=== PATIENT | female | born 1960 | race Caucasian/White ===

== ENCOUNTER 2017-01-03 00:05 | Emergency (ER) | payer SELFPAY | END 2017-01-03 03:09 | disposition home or self-care (01) | LOC: D.ER 00:05 | DX: S42.102A Fracture of unspecified part of scapula, left shoulder, initial encounter for closed fracture (principal); W17.89XA Other fall from one level to another, initial encounter; F17.200 Nicotine dependence, unspecified, uncomplicated ==

== ENCOUNTER → 2017-01-03 14:13 | Outpatient (CLI) | payer SELFPAY | END | disposition home or self-care (01) | LOC: D.CT 14:13 | DX: S42.102A Fracture of unspecified part of scapula, left shoulder, initial encounter for closed fracture (principal) ==